=== PATIENT | female | born 1990 | race Caucasian/White ===

== ENCOUNTER 2019-09-07 14:55 | Emergency (ER) | payer MEDICAID, MEDICARE ==
[~2019-09-07] VITALS: Ht 152.4 cm; Wt 50.3 kg
[2019-09-07 14:56] VITALS: BP_SYST 114
--- NOTE | 2019-09-07 15:15 | NUR ---
Patient to ER bed 08 to gown for evaluation. Side rails up.
--- NOTE | 2019-09-07 15:17 | NUR ---
Pt brought by self, A&Ox4, pt presents to ER with weakness, fever, bodyaches , cough and congestion, skin pink and warm, cap refill <3, VSS, respirations even and unlabored.
--- NOTE | 2019-09-07 15:25 | NUR ---
Dr Cooper at bedside examining patient
[2019-09-07] MEDS ORDERED: NACL 0.9% 1,000 ML IV ONE (15:34)
[2019-09-07 16:11] LABS: HEMATOCRIT 39.5 % (36-48); HEMOGLOBIN 13.4 g/dL (12.0-16.0); MEAN CORPUSCULAR HEMOGLOBIN 32 pg (27-31); MEAN CORPUSCULAR HGB CONC 34 % (32-36); MEAN CORPUSCULAR VOLUME 93 fL (79.0-98.0); PLATELET COUNT (AUTO) 121 K/uL (130-430); RED BLOOD CELL COUNT(AUTO) 4.23 MIL/uL (4.2-6.2); RED CELL DISTRIBUTION WIDTH 12.9 % (9.0-15.0); WHITE BLOOD COUNT (AUTO) 3.5 K/uL (4.8-10.8)
[2019-09-07] MEDS ORDERED: NACL 0.9% 2,000 ML IV ONE (16:15)
[2019-09-07] MEDS ORDERED: KETOROLAC TROMETHAMINE 30 MG VIAL IVP ONE (16:15)
[2019-09-07 16:22] LABS: CALCIUM 8.5 mg/dL (8.4-11.0); CREATININE 0.89 mg/dL (0.55-1.30); POTASSIUM 3.6 mmol/L (3.5-5.1)
[2019-09-07 16:27] LABS: ALBUMIN 3.7 g/dL (3.4-4.8); TOTAL BILIRUBIN 0.3 mg/dL (0.0-1.0)
[2019-09-07 17:13] LABS: PROTHROMBIN TIME 10.4 SECS (9.5-12.5)
[2019-09-07 17:23] LABS: BAND % (MANUAL) 22 % (0-6); BASOPHILS % (MANUAL) 0 % (0-2); EOSINOPHILS % (MANUAL) 2 % (0-7); LYMPHOCYTES % (MANUAL) 7 % (20-46); MONOCYTES % (MANUAL) 14 % (0-11)
[2019-09-07 17:40] LABS: BILIRUBIN,URINE NEGATIVE (NEGATIVE); BLOOD, URINE 2+ (NEGATIVE); COLOR,URINE YELLOW (YELLOW); GLUCOSE,URINE NEGATIVE (NEGATIVE); KETONES,URINE NEGATIVE (NEGATIVE); LEUKOCYTE ESTERASE ,URINE 1+ (NEGATIVE); NITRITE, URINE NEGATIVE (NEGATIVE); PROTEIN URINE NEGATIVE (NEGATIVE); UROBILINOGEN,URINE 0.2 (0.2-1.0)
[2019-09-07 18:11] LABS: CLARITY/URINE SLIGHTLY HAZY (CLEAR)
--- NOTE | 2019-09-07 18:14 | NUR ---
Pt states she feels better now, will cont to monitor.
[2019-09-07 18:38] LABS: BACTERIA,URINE FEW /HPF (None Seen); MUCUS,URINE None Seen /LPF (None Seen); YEAST,URINE Few /HPF (None Seen)
[2019-09-07 19:00] VITALS: BP_SYST 118
--- NOTE | 2019-09-07 19:00 | NUR ---
Patient given written and verbal discharge instructions and verbalizes understanding. ER MD discussed with patient the results and treatment provided. Patient in stable condition. ID arm band removed. IV catheter removed intact and dressing applied, no active bleeding. Rx of Robitussin and Naprosyn given. Patient educated on pain management and to follow up with PMD. Pain Scale 2/10 tolerable for pt . Opportunity for questions provided and answered. Medication side effect fact sheet provided.
== END 2019-09-07 19:00 | disposition home or self-care (01) ==
LOC: SED 14:55
DX: J10.1 Influenza due to other identified influenza virus with other respiratory manifestations (principal); Z88.6 Allergy status to analgesic agent
CPT/HCPCS: 36415; 71045; 80053; 81000; 81025; 82150; 83605; 83690; 85007; 85027; 85610; 85730; 86710; 87040; 87086; 96374; 99284; J1885; J7030